=== PATIENT | female | born 1950 | race Caucasian/White ===

== ENCOUNTER 2022-12-16 13:05 | Observation (INO) | payer MEDICARE, BC ==
[~2022-12-16] VITALS: Ht 162.6 cm; Wt 63.4 kg
[~2022-12-16 13:05] MED LIST: BRIM5DRO6 EACHEYE; DIVA-81 PO; FLUT16SP2 NS; LAMO100T2 PO; LATA2.5D6 OP
--- NOTE | 2022-12-16 13:18 | NUR ---
PER DR EASTMAN NO STROKE PROTOCOL JUST BASIC LABS UA AND EKG
[2022-12-16 13:42] LABS: BILIRUBIN,URINE SMALL (Neg); CLARITY,URINE CLEAR (Clear); GLUCOSE, URINE NEGATIVE (Neg); KETONES,URINE TRACE mg/dl (Neg); LEUKOCYTE ESTERASE ,URINE NEGATIVE (Neg); NITRITES, URINE NEGATIVE (Neg); OCCULT BLOOD,URINE NEGATIVE (Neg); PH,URINE 5.5 (4.8-8.0); PROTEIN,URINE NEGATIVE (Neg); UROBILINOGEN,URINE 0.2 E.U/dL (0.2-1.0)
[2022-12-16 13:43] LABS: COLOR,URINE DARK YELLOW (Yellow); UA COLLECTION TYPE CLN CATCH MIDSTREAM
[2022-12-16 13:58] LABS: BASOPHILS # (AUTO) 0.1 X10'3 (0-0.2); BASOPHILS % (AUTO) 0.9 % (0-1); EOSINOPHILS # (AUTO) 0.2 X10'3 (0-0.9); EOSINOPHILS % (AUTO) 3.8 % (0-6); HEMATOCRIT 38.3 % (35.0-45.0); HEMOGLOBIN 12.8 g/dl (12.0-16.0); LYMPHOCYTES # (AUTO) 1.4 X10'3 (1.1-4.8); LYMPHOCYTES % (AUTO) 22.5 % (21-51); MEAN CORPUSCULAR HEMOGLOBIN 34.6 PG (27.0-31.0); MEAN CORPUSCULAR HGB CONC 33.4 g/dL (33.0-36.5); MEAN CORPUSCULAR VOLUME 103.4 FL (78-98); MEAN PLATELET VOLUME 6.5 FL (7.4-10.4); MONOCYTES # (AUTO) 0.8 X10'3 (0-0.9); MONOCYTES % (AUTO) 12.2 % (2-12); NEUTROPHILS # (AUTO) 3.9 X10'3 (1.8-7.7); NEUTROPHILS % (AUTO) 60.6 % (42-75); PLATELET COUNT 552 X10'3 (140-440); RED BLOOD COUNT 3.71 X10'6 (4.20-5.60); RED CELL DISTRIBUTION WIDTH 17.9 % (11.5-14.5); WHITE BLOOD COUNT 6.4 X10'3 (4.5-11.0)
[2022-12-16 14:16] LABS: ALANINE AMINOTRANSFERASE 37 U/L (12-78); ALBUMIN 3.6 G/DL (3.4-5.0); ALBUMIN/GLOBULIN RATIO 0.8 (1.1-1.5); ALKALINE PHOSPHATASE 78 IU/L (46-116); ANION GAP 10 (8-16); ASPARTATE AMINO TRANSFERASE 33 U/L (10-37); BILIRUBIN,TOTAL 0.3 MG/DL (0.1-1.0); BLOOD UREA NITROGEN 7 MG/DL (7-18); BUN/CREATININE RATIO 7.1 (10.0-20.0); CALCIUM 9.5 MG/DL (8.5-10.1); CHLORIDE 100 MMOL/L (99-107); CREATININE 0.98 MG/DL (0.40-0.90); GLUCOSE 150 MG/DL (70-104); LIPASE 91 U/L (73-393); POTASSIUM 3.8 MMOL/L (3.5-5.1); SODIUM 137 MMOL/L (135-145); TOTAL CARBON DIOXIDE 26.8 MMOL/L (24-32); eCRCL 46 ML/MIN; eGFR 56 ML/MIN
[2022-12-16 14:23] LABS: ANISOCYTOSIS 1+; PLATELET ESTIMATE INCREASED; TOTAL CELLS COUNTED 100
[2022-12-16 14:24] LABS: TARGET CELLS FEW
--- NOTE | 2022-12-16 14:30 | NUR ---
PT REQUESTS THAT RN NOT PLACE AN IV UNTIL SHE SEES PROVIDER D/T SHE IS A CANCER PT AND WANTS TO AVOID A FINGER STICK. PT STATES THAT SX HAVE RESOLVED SINCE ARRIVING TO ED. NEURO ASSESSMENT COMPLETE.
--- NOTE | 2022-12-16 14:35 | NUR ---
PER DR HU MAKE SURE ALL LABS COLLECTED FOR CONFUSION. CBC AND CMP HAVE BEEN COLLECTED. RN WILL ORD AND OBTAIN COAGS.
[2022-12-16 14:52] LABS: APTT 28 SECONDS (22-32); PROTHROMBIN TIME 9.9 SECONDS (9.0-12.0)
[2022-12-16 14:53] LABS: INR 0.9 INR
[2022-12-16] MEDS ORDERED: aspirin 81mg tab.chew PO ONE (16:30)
[2022-12-16 16:52] LABS: ETHANOL < 10 MG/DL (<10)
[2022-12-16] MEDS ORDERED: magnesium 2GM in 50ml NS 50 ML IV PRN (17:05)
[2022-12-16] MEDS ORDERED: ondansetron/PF 4mg/2ml inj IV PRN (17:05)
[2022-12-16] MEDS ORDERED: magnesium hydroxide 30ml (MOM) UD suspension PO PRN (17:05)
[2022-12-16] MEDS ORDERED: magnesium 4gm in 100ml NS 100 ML IV PRN (17:05)
[2022-12-16] MEDS ORDERED: mag hydrox/Alum hydrox/simeth 30ml oral suspension PO PRN (17:05)
[2022-12-16] MEDS ORDERED: potassium Cl 40MEQ/1/2NS 520ml 520 ML IV PRN (17:05)
[2022-12-16] MEDS ORDERED: acetaminophen 325mg tablet PO PRN ×2 (17:05)
[2022-12-16] MEDS ORDERED: potassium Cl 20 mEq SR tablet PO PRN ×2 (17:05)
[2022-12-16] MEDS ORDERED: magnesium Cl slow-release 64mg tablet PO PRN (17:05)
--- NOTE | 2022-12-16 17:47 | NUR ---
RN SPOKE WITH MRI AND PER MRI TEST WILL BE DONE TOMORROW D/T IT IS LATE IN THE DAY.
--- NOTE | 2022-12-16 17:49 | NUR ---
PT HAVING ECHO AT THIS TIME. MRI WILL BE DONE TOMORROW.
[2022-12-16] MEDS ORDERED: OMEP20CA16 PO (18:03)
[2022-12-16] MEDS ORDERED: CLON0.1T2 PO (18:03)
[2022-12-16] MEDS ORDERED: LATA2.5D14 EACHEYE (18:03)
[2022-12-16] MEDS ORDERED: FURO20TA4 PO (18:03)
[2022-12-16] MEDS ORDERED: GABA300C PO (18:03)
[2022-12-16] MEDS ORDERED: POTA-218 PO (18:03)
[2022-12-16] MEDS ORDERED: BRIM5DRO21 EACHEYE (18:03)
[2022-12-16] MEDS ORDERED: MIRT7.5T11 PO (18:03)
[2022-12-16] MEDS ORDERED: OLAN7.5T18 PO (18:03)
[2022-12-16] MEDS ORDERED: DIVA-81 PO (18:28)
[2022-12-16] MEDS: normal saline 1000ml 1,000 ML IV SCH (19:34)
[2022-12-16] MEDS ORDERED: enoxaparin 40mg/0.4ml syringe SQ SCH (20:00)
[2022-12-16] MEDS: nicotine 7mg patch - 24hr TD SCH (21:53)
[2022-12-16] MEDS: docusate sod 100mg capsule PO SCH (22:15)
--- NOTE | 2022-12-16 23:46 | NUR ---
RECEIVED REPORT FROM MARIEL[address]RE[address]. PT HAD ANOTHER EPISODE OF CONFUSION IN ER AND DR. FRAZIER IS AWARE. IS A+OX4. REPORT NOT SHOWING BUT BLUE JOVANI WAS DONE EARLIER.
[2022-12-17] VITALS: BP 137/58; PULSE 82; RESP 15; TEMP 98.2; O2SAT 94
[2022-12-17 01:53] VITALS: BP 143/64; PULSE 83; RESP 15; TEMP 98.2; O2SAT 97
[2022-12-17 02:10] VITALS: RESP 15; O2SAT 97
[2022-12-17 06:00] VITALS: BP 154/73; PULSE 78; RESP 15; TEMP 98.3; O2SAT 95
--- NOTE | 2022-12-17 06:09 | NUR ---
Problems reprioritized. Patient report given, questions answered & plan of care reviewed with MARIELOS QUESADA.
[2022-12-17 06:44] LABS: BASOPHILS # (AUTO) 0.1 X10'3 (0-0.2); BASOPHILS % (AUTO) 2.1 % (0-1); EOSINOPHILS # (AUTO) 0.3 X10'3 (0-0.9); HEMOGLOBIN 11.5 g/dl (12.0-16.0); LYMPHOCYTES % (AUTO) 29.8 % (21-51); MONOCYTES # (AUTO) 0.9 X10'3 (0-0.9); NEUTROPHILS # (AUTO) 2.5 X10'3 (1.8-7.7)
[2022-12-17 06:50] LABS: EOSINOPHILS % (AUTO) 6.3 % (0-6); HEMATOCRIT 33.7 % (35.0-45.0); LYMPHOCYTES # (AUTO) 1.7 X10'3 (1.1-4.8); MEAN CORPUSCULAR HEMOGLOBIN 35.4 PG (27.0-31.0); MEAN PLATELET VOLUME 6.4 FL (7.4-10.4); MONOCYTES % (AUTO) 16.2 % (2-12); NEUTROPHILS % (AUTO) 45.6 % (42-75); PLATELET COUNT 463 X10'3 (140-440); RED BLOOD COUNT 3.24 X10'6 (4.20-5.60); RED CELL DISTRIBUTION WIDTH 17.7 % (11.5-14.5); WHITE BLOOD COUNT 5.6 X10'3 (4.5-11.0)
[2022-12-17 07:03] LABS: ALANINE AMINOTRANSFERASE 30 U/L (12-78); ALBUMIN 2.7 G/DL (3.4-5.0); ALBUMIN/GLOBULIN RATIO 0.8 (1.1-1.5); ALKALINE PHOSPHATASE 73 IU/L (46-116); ANION GAP 5 (8-16); ASPARTATE AMINO TRANSFERASE 19 U/L (10-37); BILIRUBIN,TOTAL 0.2 MG/DL (0.1-1.0); BLOOD UREA NITROGEN 11 MG/DL (7-18); CHLORIDE 105 MMOL/L (99-107); CREATININE 0.92 MG/DL (0.40-0.90); GLUCOSE 93 MG/DL (70-104); POTASSIUM 3.8 MMOL/L (3.5-5.1); SODIUM 138 MMOL/L (135-145); TOTAL CARBON DIOXIDE 27.6 MMOL/L (24-32); TOTAL PROTEIN 5.9 G/DL (6.4-8.2); eCRCL 49 ML/MIN; eGFR 60 ML/MIN
--- NOTE | 2022-12-17 07:25 | NUR ---
Patient in room [facility] 4020. I have received report from BIRD ARCEO and had the opportunity to ask questions and assume patient care.
[2022-12-17 07:40] LABS: TOTAL CELLS COUNTED 100
[2022-12-17 07:41] LABS: ANISOCYTOSIS 1+; PLATELET ESTIMATE INCREASED
[2022-12-17 08:00] VITALS: BP_SYST 147; BP_SYST 155; BP_SYST 159; BP_DIAS 68; BP_DIAS 73; PULSE 79; PULSE 82; PULSE 85; RESP 15; O2SAT 95
[2022-12-17] MEDS: docusate sod 100mg capsule PO SCH (08:59)
[2022-12-17] MEDS: nicotine 7mg patch - 24hr TD SCH (09:00)
[2022-12-17 09:41] LABS: BILIRUBIN,DIRECT 0.1 MG/DL (0-0.3)
[2022-12-17 09:59] LABS: HEMOGLOBIN A1C 5.1 % (4.5-6.2)
[2022-12-17 10:00] VITALS: BP 142/74; PULSE 79; RESP 16; TEMP 98.3; O2SAT 98
[2022-12-17 10:03] LABS: CHOLESTEROL 196 MG/DL (0-200); HDL CHOLESTEROL 65 MG/DL (35-60); LDL CHOLESTEROL 93 MG/DL (50-100); TRIGLYCERIDES 146 MG/DL (20-135)
[2022-12-17] MEDS ORDERED: GADOTERATE MEGLUMINE 7.5 MMOL/15 ML VIAL IV ONE (12:36)
[2022-12-17] MEDS: normal saline 1000ml 1,000 ML IV SCH (13:05)
--- NOTE | 2022-12-17 14:53 | NUR ---
pt is stable for dc, iv dc cannula is intact, all dc info gone over and signed, pt did not recall bringing her meds to the hospital and they must be at home no pharmacy slip in chart and when called no home meds down there, pt was walked down to the lobby and left with a friend in a private vehicle.
[2022-12-17] MEDS ORDERED: brimonidine 0.2% 5 ML ophthalmic drops EACHEYE SCH (20:00)
[2022-12-17] MEDS ORDERED: timolol 0.5% ophthalmic solution 5ml bottle EACHEYE SCH (20:00)
[2022-12-17] MEDS ORDERED: gabapentin 400mg capsule PO SCH (20:00)
[2022-12-17] MEDS ORDERED: latanoprost 0.005% 2.5ml ophthalmic drops EACHEYE SCH (21:00)
[2022-12-17] MEDS ORDERED: divalproex sodium 500mg tablet.DR PO SCH (21:00)
[2022-12-17] MEDS ORDERED: lamoTRIgine 100mg tablet PO SCH (21:00)
[2022-12-17] MEDS ORDERED: OLANZapine 2.5MG tablet PO SCH (21:00)
[2022-12-17] MEDS ORDERED: mirtazapine 15mg tablet PO SCH (21:00)
[2022-12-18] MEDS ORDERED: pantoprazole 40mg Tablet.DR PO SCH (07:30)
[2022-12-18] MEDS ORDERED: furosemide 20MG tablet PO SCH (08:00)
[2022-12-18] MEDS ORDERED: divalproex sod 250mg ER (24-hour) tablet PO SCH (08:00)
== END 2022-12-17 14:40 | disposition home or self-care (01) ==
LOC: ER 13:06 → ED HOLD 17:08 → EDBEDREQ 22:56 → ORTHO 4S 23:58
PROVIDERS: ADMIT Internal Medicine; ATTEND Internal Medicine
DX: G45.9 Transient cerebral ischemic attack, unspecified (principal); C50.919 Malignant neoplasm of unspecified site of unspecified female breast; F31.9 Bipolar disorder, unspecified; Z87.891 Personal history of nicotine dependence; Z79.899 Other long term (current) drug therapy
CPT/HCPCS: 36415; 70544; 70553; 80053; 80061; 80320; 81003; 82248; 82948; 83036; 83690; 84484; 85007; 85025; 85610; 85730; 87081; 92508; 92616; 93005; 93306; 93880; 96360; 96361; 96372; 97161; 97530; 99285; A9575; G0378; J1650; J7030